=== PATIENT | male | born 1960 | race Two or more races ===

== ENCOUNTER 2018-01-18 00:29 | Emergency (ER) | payer OTHER ==
[~2018-01-18] VITALS: Ht 175.3 cm; Wt 64.4 kg
[2018-01-18 00:38] VITALS: BP 103/84; Ht 175.3 cm; Wt 64.4 kg
== END 2018-01-18 01:51 | disposition left against medical advice (07) ==
LOC: ED 00:29
DX: Z53.21 Procedure and treatment not carried out due to patient leaving prior to being seen by health care provider (principal)

== ENCOUNTER 2018-05-24 02:40 | Emergency (ER) | payer OTHER ==
[~2018-05-24] VITALS: Ht 175.3 cm; Wt 61.2 kg
[2018-05-24 04:21] VITALS: BP 144/77
== END 2018-05-24 04:25 | disposition home or self-care (01) ==
LOC: ED 02:40
DX: L03.317 Cellulitis of buttock (principal); F17.210 Nicotine dependence, cigarettes, uncomplicated; M19.90 Unspecified osteoarthritis, unspecified site; Z88.0 Allergy status to penicillin

== ENCOUNTER 2018-06-12 06:43 | Emergency (ER) | payer OTHER ==
[~2018-06-12] VITALS: Ht 175.3 cm; Wt 62.1 kg
[2018-06-12 06:49] VITALS: BP 122/78; Ht 175.3 cm; Wt 62.1 kg
== END 2018-06-12 07:10 | disposition left against medical advice (07) ==
LOC: ED 06:43
DX: R33.9 Retention of urine, unspecified (principal); R10.30 Lower abdominal pain, unspecified

== ENCOUNTER 2019-08-10 10:30 | Emergency (ER) | payer OTHER ==
[~2019-08-10] VITALS: Ht 175.3 cm; Wt 67.6 kg
[2019-08-10 10:37] VITALS: Ht 175.3 cm; Wt 67.6 kg
[2019-08-10 11:41] LABS: BASOPHIL % 0.5 % (0-2); PLATELET COUNT 246 x10^3mcL (130-400); RED CELL DISTRIBUTION WIDTH 13.4 % (11.5-14.5)
[2019-08-10 11:44] LABS: CALCIUM 8.3 mg/dL (8.5-10.1); CARBON DIOXIDE 29.4 mmol/L (21-32); CHLORIDE SERUM 104 mmol/L (98-107); CREATININE SERUM 0.8 mg/dL (0.7-1.3); GFR1 > 60 mL/min; GLUCOSE SERUM 91 mg/dL (74-106); SODIUM SERUM 140 mmol/L (136-145)
[2019-08-10 11:57] LABS: ALBUMIN 3.6 g/dL (3.4-5.0); ALKALINE PHOSPHATASE 130 U/L (46-116); ALT/SGPT 16 U/L (16-63); AST/SGOT 12 U/L (15-37); BILIRUBIN TOTAL 0.3 mg/dL (0.20-1.00); TOTAL PROTEIN, SERUM 7.3 g/dL (6.4-8.2)
[2019-08-10 13:11] VITALS: BP 110/80
== END 2019-08-10 13:11 | disposition home or self-care (01) ==
LOC: ED 10:30
DX: R07.89 Other chest pain (principal); M19.90 Unspecified osteoarthritis, unspecified site; Z88.0 Allergy status to penicillin
CPT/HCPCS: 36415; J1885; Q0092